=== PATIENT | female | born 1970 | race Caucasian/White ===

== ENCOUNTER → 2020-01-14 | Outpatient (CLI) | payer BC ==
--- NOTE | 2020-01-14 12:25 | RAD ---
Bone densitometry. Clinical history: 49-year-old female for screening. Hip: Right. The technical acquisition is adequate. The bone lowest mineral density between the femoral neck and total femur is at the the right femoral neck and is 0.843 gm/cm2. This corresponds to a Z-score of -0.6 which is consistent with normal bone mineral density. At this bone density level, fracture risk is normal. Forearm/Radius: Right. The technical acquisition is adequate. The bone mineral density at the mid third/33 percent right Radius is 0.678 gm/cm2. This corresponds to a Z-score of -0.5 which is consistent with normal bone mineral density. At this bone density level, fracture risk is normal. Impression: 1. Normal bone mineral density of the right hip and right radius. Note: T-Score definitions established by the World Health Organization: 1. Normal: T-score is -1.0 or above. 2. Osteopenia: T-score is between -1.0 and -2.5. 3. Osteoporosis: T-score is -2.5 or below. For patients in whom the T-Score does not apply, a Z-Score below -2.0 is consistent with abnormal bone mineral density. Electronically signed by: Ziyad Hollis MD (01/14/2020 12:22 PM) [id number]
--- NOTE | 2020-01-19 13:42 | RAD ---
BILATERAL SCREENING MAMMOGRAM, 3-D History: Routine screening. Comparison: 03/25/2019, 03/20/2018, 03/14/2017. Technique: MLO and CC digital tomosynthesis (3D) images obtained. Radiologist reviewed these images on dedicated workstation. Findings: Breast Tissue Density B : There are scattered areas of fibroglandular density. No masses or suspicious calcifications.. There is a region of asymmetry and suspected distortion involving the left inner breast 6.3 cm from the nipple on the CC projection. IMPRESSION: Spot compression imaging of the left inner breast is recommended. Ultrasound may be needed. BI-RADS Category 0: Incomplete: Need additional imaging evaluation. The images were reviewed with computer-aided detection. Patient information is entered into reminder system with a target due date for the next screening mammogram. Mammography is the most sensitive method for finding small breast cancers, but it does not detect them all and is not a substitute for careful clinical examination. A negative mammogram does not negate a clinically suspicious finding and should not result in delay in biopsying a clinically suspicious abnormality. "Our facility is accredited by the [employer] Mammography [employer]." Electronically signed by: Iban Faustin MD (01/19/2020 1:39 PM) [id number]
== END ==
LOC: MAMMO 09:14
PROVIDERS: ATTEND Obstetrics & Gynecology
DX: Z12.31 Encounter for screening mammogram for malignant neoplasm of breast (principal); Z13.820 Encounter for screening for osteoporosis; Z78.0 Asymptomatic menopausal state; N64.89 Other specified disorders of breast
CPT/HCPCS: 77063; 77067; 77080; 77081

== ENCOUNTER → 2020-02-05 | Outpatient (CLI) | payer BC ==
--- NOTE | 2020-02-06 08:11 | RAD ---
Examination: 1. Left digital diagnostic mammogram. 2. Limited left breast ultrasound. INDICATION: 49-year-old woman recalled from screening for asymmetry in the medial left breast COMPARISON: 03/25/2019 and 01/14/2020 bilateral mammograms. TECHNIQUE: Additional spot compression views of the left breast were obtained in the CC projection. Targeted ultrasound of the upper inner quadrant left breast was subsequently pursued. FINDINGS: The questioned asymmetry in the medial posterior left breast appear to changed configuration in a pattern compatible with benign overlap of fibroglandular tissue on additional spot compression views. Targeted ultrasound of the left breast in the upper inner quadrant revealed no suspicious sonographic findings. IMPRESSION: Probably benign asymmetry representing overlap of fibroglandular tissue. Recommend 6 month follow-up left diagnostic mammogram. BI-RADS Category 3 Probably benign findings Six-month left diagnostic mammogram recommended Patient entered into a reminder system with targeted due date for next mammogram. Electronically signed by: Anna Ya MD (02/06/2020 8:09 AM) [id number]
== END ==
LOC: MAMMO 12:53
PROVIDERS: ATTEND Obstetrics & Gynecology
DX: R92.2 Inconclusive mammogram (principal)
CPT/HCPCS: 76641; 77065

== ENCOUNTER → 2020-08-04 | Outpatient (CLI) | payer BC ==
--- NOTE | 2020-08-04 14:01 | RAD ---
DATE: August 04, 2020 EXAM: MAMMO [facility] LT HISTORY: Follow-up of asymmetry of the medial aspect of the left breast seen on screening mammogram dated January 14, 2020 COMPARISON: January 14, 2020 screening mammogram and diagnostic mammogram dated February 05, 2020. This study was interpreted with the benefit of Computerized Aided Detection (CAD). FINDINGS: Breast Density: FATTY The breast parenchyma is primarily fatty replaced. Breast parenchyma level density A.. The previously seen asymmetry of the medial left breast is not evident today consistent with a benign finding. IMPRESSION: Benign finding of the left breast. Recommend bilateral mammography in 6 months to get back onto the yearly screening schedule. BI-RADS CATEGORY: 3 PROBABLE BENIGN-SHORT TERM F/U RECOMMENDED FOLLOW-UP: 6M 6 MONTH FOLLOW-UP PQRS compliance statement: Patient information was entered into a reminder system with a target due date February 04, 2021 for the next mammogram. Mammography is a sensitive method for finding small breast cancers, but it does not detect them all and is not a substitute for careful clinical examination. A negative mammogram does not negate a clinically suspicious finding and should not result in delay in biopsying a clinically suspicious abnormality. "Our facility is accredited by the [employer] Mammography [employer]." The patient's breast density may affect the ability of mammography to detect breast cancer. There are 4 categories of breast density, A, B, C and D. Breast density A means that most of the breast tissue is replaced with adipose tissue and therefore is not dense. Breast density B means that the breast tissue is mildly dense and scattered. Breast density C means that the breast tissue is heterogeneously dense. Breast density D means that the breast tissue is very dense. Breast densities especially C and D may decrease the sensitivity of mammography to detect breast cancer. Therefore, the patient may benefit from 3-D breast mammography (3D breast tomography) as a part of their screening mammogram. Insurance may or may not pay for this additional imaging. The patient's breast density based on today's mammogram is category A.
== END ==
LOC: MAMMO 13:00
PROVIDERS: ATTEND Family Medicine
DX: R92.8 Other abnormal and inconclusive findings on diagnostic imaging of breast (principal)
CPT/HCPCS: 77065; G0279; 77061

== ENCOUNTER → 2021-01-14 | Outpatient (CLI) | payer BC ==
--- NOTE | 2021-01-14 18:53 | RAD ---
Bilateral digital screening 2-D and 3-D (digital breast tomosynthesis) mammogram: Reason for examination: Routine screening. Comparison: Mammograms from 01/14/2020 and 03/25/2019. Interpretation was made with the benefit of CAD. FINDINGS: Breast density: Category B. There are scattered areas of fibroglandular density. No new suspicious breast mass, malignant appearing calcifications, or architectural distortion is see n. IMPRESSION: No evidence of malignancy. Assessment: BI-RADS 1. Negative. Recommendation: Routine screening mammograms. The patient will receive a letter with the results in the mail. Patient information will be entered i nto the mammography reminder system with a target recall date for the next mammogram. A reminder sirena er will be generated. Electronically signed by: Sara Rossi MD (01/14/2021 6:50 PM) [id number]
== END ==
LOC: MAMMO 10:25
PROVIDERS: ATTEND Obstetrics & Gynecology
DX: Z12.31 Encounter for screening mammogram for malignant neoplasm of breast (principal)
CPT/HCPCS: 77063; 77067